=== PATIENT | male | born 1955 | race Caucasian/White ===

== ENCOUNTER 2017-08-17 16:02 | Observation (INO) | payer OTHER ==
[~2017-08-17] VITALS: Ht 177.8 cm; Wt 74.5 kg
[2017-08-17] MEDS ORDERED: LORA-446 PO (16:07)
[2017-08-17] MEDS ORDERED: ACYC-113 PO (16:07)
[2017-08-17] MEDS ORDERED: METO-93 PO (16:07)
[2017-08-17] MEDS ORDERED: ZOLP-413 PO (16:07)
[2017-08-17] MEDS ORDERED: ENALAPRILAT 1.25 MG/ML, 2ML IVPush PRN (18:00)
[2017-08-17] MEDS ORDERED: METOCLOPRAMIDE 5 MG/ML, 2ML IVPush PRN (18:00)
[2017-08-17] MEDS ORDERED: ONDANSETRON 2MG/ML, 2ML IVPush PRN (18:00)
[2017-08-17] MEDS ORDERED: hydrALAzine 20 MG/ML, 1ML IVPush PRN (18:00)
[2017-08-17] MEDS ORDERED: LORazepam 2 MG/ML, 1ML IVPush PRN (18:00)
[2017-08-17] MEDS ORDERED: LORazepam 1MG TABLET PO PRN (18:00)
[2017-08-17] MEDS ORDERED: ONDANSETRON ODT 4 MG PO PRN (18:00)
[2017-08-17] MEDS ORDERED: ENOXAPARIN 40 MG/0.4 ML SQ SCH (18:00)
[2017-08-17] MEDS ORDERED: PROMETHAZINE 25 MG/ML, 1ML IM PRN (18:00)
[2017-08-17] MEDS ORDERED: GADOBUTROL 7.5 MMOL/7.5 ML PFS ONE (18:38)
[2017-08-17 20:40] VITALS: BP 125/84
[2017-08-17] MEDS: ZOLPIDEM 5MG TABLET PO PRN ×2 (22:27→23:31)
[2017-08-18] MEDS: ZOLPIDEM 5MG TABLET PO PRN (00:31)
[2017-08-18] MEDS: ACETAMINOPHEN 325 MG TABLET PO PRN ×2 (00:33→14:08)
[2017-08-18 02:20] VITALS: BP 126/86
[2017-08-18 04:29] LABS: BASOPHILS # (AUTO) 0.01 x10^3/uL (0-0.1); BASOPHILS % (AUTO) 0 % (0-1); EOSINOPHILS # (AUTO) 0.04 x10^3/uL (0-0.4); EOSINOPHILS % (AUTO) 1 % (1-7); LYMPHOCYTES # (AUTO) 1.48 x10^3/uL (1-3.4); LYMPHOCYTES % (AUTO) 27 % (22-44); MD NO; MEAN CORPUSCULAR HEMOGLOBIN 29.1 pg (27.5-34.5); MEAN CORPUSCULAR HGB CONC 34.4 g/dL (33.2-36.2); MEAN CORPUSCULAR VOLUME 84.4 fL (81-97); MEAN PLATELET VOLUME 7.9 fL (7.4-10.4); MONOCYTES # (AUTO) 0.55 x10^3/uL (0.2-0.8); MONOCYTES % (AUTO) 10 % (2-9); NEUTROPHILS # (AUTO) 3.42 x10^3/uL (1.8-6.8); NEUTROPHILS % (AUTO) 62 % (42-75); PLATELET COUNT 220 x10^3/uL (130-400); RED BLOOD COUNT 4.92 x10^6/uL (4.38-5.82); RED CELL DISTRIBUTION WIDTH 13.9 % (9.4-14.8)
[2017-08-18 04:39] LABS: ALBUMIN 3.4 g/dL (3.4-5.0); ANION GAP 5 mmol/L (5-15); CALCIUM 8.3 mg/dL (8.5-10.1); CHLORIDE 108 mmol/L (98-107)
[2017-08-18 04:52] LABS: ALANINE AMINOTRANSFERASE 44 U/L (12-78); ALKALINE PHOSPHATASE 50 U/L (45-117); BILIRUBIN,TOTAL 1.6 mg/dL (0.2-1.0); CREATININE 1.18 mg/dL (0.7-1.3); TOTAL PROTEIN 6.2 g/dL (6.4-8.2)
[2017-08-18] MEDS: METOPROLOL SUCCINATE 50 MG TAB.ER.24H PO SCH ×2 (07:41→07:45)
[2017-08-18 08:20] VITALS: BP 137/97
[2017-08-18] MEDS ORDERED: ACYCLOVIR 200 MG CAPSULE PO SCH (09:00)
== END 2017-08-18 14:20 | disposition home or self-care (01) ==
LOC: ED 17:00 → EDIP 17:01 → INTOOBSV 17:01 → ED 17:57 → 3NW 18:20
PROVIDERS: ADMIT Internal Medicine; ATTEND Internal Medicine
DX: R20.2 Paresthesia of skin (principal); R20.0 Anesthesia of skin; F41.9 Anxiety disorder, unspecified; R47.01 Aphasia; G47.00 Insomnia, unspecified; R51 Headache; I10 Essential (primary) hypertension; G89.29 Other chronic pain; Z86.73 Personal history of transient ischemic attack (TIA), and cerebral infarction without residual deficits; Z85.841 Personal history of malignant neoplasm of brain
CPT/HCPCS: 36415; 70553; 80053; 83735; 84100; 84443; 85025; 93005; 95819; 99285; A9585; G0378